=== PATIENT | male | born 1980 | race African-American/Black ===

== ENCOUNTER 2022-09-26 04:54 | Emergency (ER) | payer OTHER ==
[~2022-09-26] VITALS: Ht 182.9 cm; Wt 72.6 kg
--- NOTE | 2022-09-26 05:08 | NUR ---
Patient discharged to [employer] custody in stable condition. Written and verbal after care instructions given. Patient verbalizes understanding of instructions. Stressed follow up or return to ER for worsening s/s.
== END 2022-09-26 05:09 ==
LOC: ER 04:59
DX: Z02.89 Encounter for other administrative examinations (principal); J45.909 Unspecified asthma, uncomplicated; Z88.0 Allergy status to penicillin
CPT/HCPCS: A4663